=== PATIENT | male | born 1970 ===

== ENCOUNTER 2025-04-16 08:38 | Outpatient (CLI) | payer BC ==
[2025-04-16 08:56] LABS: Urine Bacteria None Seen /hpf (None Seen)
[2025-04-16 09:16] LABS: Basophils # (auto) 0.1 10 ^3/uL (0-0.2); Eosinophils # (auto) 0.1 10 ^3/uL (0-0.8); Hemoglobin 14.3 g/dL (13.5-17.5); Mean Corpuscular Hgb Conc. 33.2 g/dL (32.0-36.0); Nucleated Red Blood Cells % 0.1 %; Platelet Count (auto) 219 10^3/uL (140-450); Urine Blood Negative /uL (Negative); Urine Clarity Clear (Clear); Urine Color Light-Yellow (Yellow); Urine Protein, UAD Negative (Negative); Urine Specific Gravity 1.017 (1.001-1.035); Urine Squamous Epithelial Cell None Seen /hpf (<5); Urine Urobilinogen Normal (Negative); Urine WBC < 1 /HPF (0-3); Urine pH 5.5 (5.0-9.0); White Blood Cell 7.2 10^3/uL (4.4-10.8)
[2025-04-16 09:22] LABS: Basophils % (auto) 1.3 % (0.0-2.0); Hematocrit 43.2 % (41.0-53.0); Lymphocytes % (auto) 42.1 % (10.0-50.0); Mean Corpuscular Hemoglobin 27.1 pg (28.0-32.0); Mean Corpuscular Volume 81.7 fL (80.0-100.0); Monocytes # (auto) 0.8 10 ^3/uL (0-1.3); Monocytes % (auto) 11.6 % (0.0-12.0); Neutrophils # (auto) 3.1 10 ^3/uL (1.6-8.6); Red Blood Cells 5.29 10^6/uL (4.5-5.90); Red Cell Distribution Width 13.4 % (11.8-14.3)
[2025-04-16 09:33] LABS: Alanine Aminotransferase 16 U/L (7-40); Albumin 4.5 g/dL (3.2-4.8); Alkaline Phosphatase 62 U/L (46-116); Anion Gap 8 (5-15); Aspartate Aminotransferase 15 U/L (<34); BUN/Creatinine Ratio 11.5 (10.0-20.0); Bilirubin, Total 0.6 mg/dL (0.2-1.0); Blood Urea Nitrogen 12 mg/dL (9-23); Calcium 9.6 mg/dL (8.7-10.4); Carbon Dioxide 29 mmol/L (20-31); Chloride 106 mmol/L (98-107); Cholesterol 151 mg/dL (< 200); Glucose 101 mg/dL (74-106); Potassium 4.4 mmol/L (3.5-5.1); Sodium 143 mmol/L (136-145); Total Protein 7.2 g/dL (5.7-8.2); Triglycerides 132 mg/dL (< 150)
[2025-04-16 10:17] LABS: HDL Cholesterol 32 mg/dL (40-59); LDL Cholesterol 105 mg/dL (< 100)
[2025-04-17 11:27] LABS: Prostate Specific Antigen 1.64 ng/mL (0.0-4.0)
[2025-04-17 11:31] LABS: Free T4 (Free Thyroxine) 1.21 ng/dL (0.89-1.76)
== END 2025-04-16 17:00 | disposition home or self-care (01) ==
LOC: LAB 08:38
PROVIDERS: ATTEND Internal Medicine
DX: B02.23 Postherpetic polyneuropathy (principal); M79.2 Neuralgia and neuritis, unspecified; Z00.01 Encounter for general adult medical examination with abnormal findings; Z80.42 Family history of malignant neoplasm of prostate
CPT/HCPCS: 36415; 80053; 80061; 81001; 83036; 84153; 84439; 84443; 85025